=== PATIENT | female | born 1965 | race Caucasian/White ===

== ENCOUNTER 2017-05-31 13:55 | Emergency (ER) | payer MEDICARE ==
--- NOTE | 2017-05-31 14:49 | ED ---
General Adult HPI - General Chief complaint: Urogenital Stated complaint: FALLS, URINARY RETENTION Time Seen by Provider: 05/31/17 14:24 Source: EMS, RN notes reviewed Mode of arrival: EMS - History of Present Illness Initial comments: 51 yo female presents to the ER with cc of urinary retention. Patient has a history of increased fluid on the brain. They state that she has been acting that way she's been having some unsteady gait she's been having urinary retention and she has been having some abnormal behavior. They state that whenever this happens they get concerned about increased fluid on the brain. They state that they were concerned because she hasn't had a good urine output so they brought her here. She has had multiple falls. The patient denies any pain at this time. The patient is poor historian. Family at bedside does give a brief history. Patient denies any recent fever, chills, shortness of breath, chest pain, back pain, nausea vomiting, numbness or tingling, dysuria or hematuria, constipation or diarrhea, headaches or visual changes, or any other current symptoms. - Related Data Home Medications Medication Instructions Recorded Confirmed Acyclovir [Zovirax] 200 mg PO BID 05/31/17 05/31/17 Cholecalciferol (Vitamin D3) 2,000 unit PO DAILY 05/31/17 05/31/17 [Vitamin D3] Levothyroxine Sodium [Synthroid] 50 mcg PO DAILY 05/31/17 05/31/17 Niacin 500 mg PO HS 05/31/17 05/31/17 risperiDONE [RisperDAL] 2 mg PO HS 05/31/17 05/31/17 Allergies Allergy/AdvReac Type Severity Reaction Status Date / Time No Known Allergies Allergy Verified 05/31/17 14:49 Review of Systems ROS Statement: Those systems with pertinent positive or pertinent negative responses have been documented in the HPI. ROS Other: All systems not noted in ROS Statement are negative. Past Medical History Past Medical History: Neurologic Disorder Additional Past Medical History / Comment(s): hyperthroidism, short term memory, History of Any Multi-Drug Resistant Organisms: None Reported Past Surgical History: Breast Surgery Additional Past Surgical History / Comment(s): [id number], 1 brain shunt 2004, 1 brain shunt 2014, 2000- breast implants. Past Psychological History: No Psychological Hx Reported Smoking Status: Former smoker Past Alcohol Use History: None Reported Past Drug Use History: None Reported General Exam - General Exam Comments Initial Comments: General: The patient is awake and alert, in no distress, and does not appear acutely ill. Head: Contusion around the left eye Eye: Pupils are equal, round and reactive to light, extra-ocular movements are intact; there is normal conjunctiva bilaterally. No signs of icterus. Ears, nose, mouth and throat: There are moist mucous membranes and no oral lesions. Neck: The neck is supple, there is no tenderness. Cardiovascular: There is a regular rate and rhythm. No murmur, rub or gallop is appreciated. Respiratory: Lungs are clear to auscultation, respirations are non-labored, breath sounds are equal. No wheezes, stridor, rales, or rhonchi. Gastrointestinal: Soft, distended, non-tender abdomen without masses or organomegaly noted. There is no rebound or guarding present. No CVA tenderness. Bowel sounds are unremarkable. Back: There is no tenderness to palpation in the midline. There is no obvious deformity. No rashes noted. Musculoskeletal: Normal ROM, no tenderness, There is no pedal edema. There is no calf tenderness or swelling. Sensation intact. Pulses equal bilaterally 2+. Neurological: CN II-XII intact, There are no obvious motor or sensory deficits. Coordination appears grossly intact. Speech is normal. Patient does appear to have some ataxia on exam however unknown about patient's normal neurological state. Patient does appear to have some left arm weakness on exam unknown if this is new or chronic for the patient. Skin: Skin is warm and dry and no rashes or lesions are noted. Psychiatric: Cooperative, appropriate mood & affect, normal judgment. Course Vital Signs 05/31/17 05/31/17 05/31/17 13:58 15:07 16:00 Temperature 97.1 F L Pulse Rate 100 101 H 102 H Respiratory 18 20 18 Rate Blood Pressure 137/67 150/87 124/72 O2 Sat by Pulse 97 97 96 Oximetry Medical Decision Making - Medical Decision Making 51-year-old female presents emergency Department with a chief complaint of falls and urinary retention. Patient continues to complain of no pain. At this time CT is been reviewed as well as laboratory. This and we will transfer the patient [facility] where her neuro surgeries were performed in the past for continued care and evaluation. This is discussed with the family and they are in agreement with the plan. At this time the case was discussed with Dr. Kaur who is in agreement with this plan and they do accept the patient. - Lab Data Result diagrams: 05/31/17 15:07 Lab Results 05/31/17 05/31/17 05/31/17 Range/Units 14:53 15:07 15:07 WBC 7.8 (3.8-10.6) k/uL RBC 4.36 (3.80-5.40) m/uL Hgb 14.4 (11.4-16.0) gm/dL Hct 43.4 (34.0-46.0) % MCV 99.6 (80.0-100.0) fL MCH 32.9 (25.0-35.0) pg MCHC 33.0 (31.0-37.0) g/dL RDW 13.4 (11.5-15.5) % Plt Count 316 (150-450) k/uL Neutrophils % 75 % Lymphocytes % 18 % Monocytes % 4 % Eosinophils % 1 % Basophils % 0 % Neutrophils # 5.8 (1.3-7.7) k/uL Lymphocytes # 1.4 (1.0-4.8) k/uL Monocytes # 0.3 (0-1.0) k/uL Eosinophils # 0.1 (0-0.7) k/uL Basophils # 0.0 (0-0.2) k/uL PT 9.8 (9.0-12.0) sec INR 1.0 (<1.2) APTT 23.6 (22.0-30.0) sec Urine Color Yellow Urine Appearance Clear (Clear) Urine pH 6.0 (5.0-8.0) Ur Specific [place] 1.022 (1.001-1.035) Urine Protein 1+ H (Negative) Urine Glucose (UA) Negative (Negative) Urine Ketones 1+ H (Negative) Urine Blood Moderate H (Negative) Urine Nitrite Negative (Negative) Urine Bilirubin Negative (Negative) Urine Urobilinogen <2.0 (<2.0) mg/dL Ur Leukocyte Esterase Negative (Negative) Urine RBC 10 H (0-5) /hpf Urine WBC 5 (0-5) /hpf Ur Squamous Epith Cells <1 (0-4) /hpf Amorphous Sediment Rare H (None) /hpf Urine Mucus Rare H (None) /hpf - Radiology Data Radiology results: report reviewed, image reviewed Disposition Clinical Impression: Urinary retention, Unsteady gait, Frequent falls, Hematuria, Contusion of left eye, Shunt malfunction, Normal pressure hydrocephalus Disposition: OTHER INSTITUTION NOT DEFINED Condition: Stable Referrals: Oebd Juares MD [Primary Care Provider] - 1-2 days - Out of Hospital Transfer - Req. Specs Out of Hospital Transfer - Requested Specifics: Other Non-Acute ([facility] neuro floor)
[2017-05-31 15:10] LABS: Amorphous Sediment,Urine Rare /hpf; Appearance,Urine Clear (Clear); Bilirubin,Urine Negative (Negative); Glucose,Urine (UA) Negative (Negative); Ketones,Urine 1+ (Negative); Leukocyte Esterase,Urine Negative (Negative); Mucus,Urine Rare /hpf; Nitrite,Urine Negative (Negative); Particle Count 2136; Protein,Urine 1+ (Negative); RBC,Urine 10 /hpf (0-5); Specific Gravity,Urine 1.022 (1.001-1.035); Squamous Epithelial Cell,Urine <1 /hpf (0-4); UA Billing (MACRO vs. MICRO) MICRO; Urobilinogen,Urine <2.0 mg/dL (<2.0); WBC,Urine 5 /hpf (0-5)
[2017-05-31 15:20] LABS: Basophils % (A) 0 %; CH 32.5; CHCM 32.8; Eosinophils # (A) 0.1 k/uL (0-0.7); Eosinophils % (A) 1 %; HCT 43.4 % (34.0-46.0); HDW 2.43; HGB 14.4 gm/dL (11.4-16.0); Luc # (Auto) 0.13; Luc % (Auto) 2; Lymphocytes # (A) 1.4 k/uL (1.0-4.8); Lymphocytes % (A) 18 %; MCH 32.9 pg (25.0-35.0); MCV 99.6 fL (80.0-100.0); Mean Platelet Volume 7.9; Monocytes # (A) 0.3 k/uL (0-1.0); Monocytes % (A) 4 %; Neutrophils # (A) 5.8 k/uL (1.3-7.7); Neutrophils % (A) 75 %; RBC 4.36 m/uL (3.80-5.40); RDW 13.4 % (11.5-15.5); WBC 7.8 k/uL (3.8-10.6); WBC (Perox) 7.43
[2017-05-31 15:29] LABS: ALT 161 U/L (9-52); AST 295 U/L (14-36); Alkaline Phosphatase 99 U/L (38-126); Amylase 36 U/L (30-110); Anion Gap 9 mmol/L; Blood Urea Nitrogen 14 mg/dL (7-17); Calcium 9.2 mg/dL (8.4-10.2); Carbon Dioxide 24 mmol/L (22-30); Chloride 108 mmol/L (98-107); Glucose 97 mg/dL (74-99); Non-African American GFR(MDRD) >60 (>60 ml/min/1.73 sqM); Phosphorous 3.1 mg/dL (2.5-4.5); Potassium 3.5 mmol/L (3.5-5.1); Sodium 141 mmol/L (137-145); Total Bilirubin 0.5 mg/dL (0.2-1.3); Total Protein 6.2 g/dL (6.3-8.2)
--- NOTE | 2017-05-31 15:38 | XR ---
EXAMINATION TYPE: XR chest 2V DATE OF EXAM: 05/31/2017 COMPARISON: 11/12/2012 TECHNIQUE: PA and lateral views submitted. HISTORY: Cough FINDINGS: The lungs are clear and there is no pneumothorax, pleural effusion, or focal pneumonia. Tubing or c atheter overlying the right chest and neck. Subsegmental changes at both lung bases. IMPRESSION: 1. Basilar subsegmental changes are felt more typical of atelectasis than pneumonia. Correlate clinic ally.
[2017-05-31 15:42] LABS: Partial Thromboplastin Time 23.6 sec (22.0-30.0); Prothrombin Time 9.8 sec (9.0-12.0)
--- NOTE | 2017-05-31 15:43 | CT ---
EXAMINATION TYPE: CT brain wo con DATE OF EXAM: 05/31/2017 COMPARISON: NONE HISTORY: Frequent falls. CT DLP: 963.60 mGycm. Automated Exposure Control for Dose Reduction was Utilized. TECHNIQUE: CT scan of the head is performed without contrast. FINDINGS: There is no acute intracranial hemorrhage. Paranasal sinuses and mastoid air cells are we ll aerated. Occipital craniectomy defect is redemonstrated. The previously seen ventriculoperitoneal shunt and a right frontal approach with associated encephalomalacia of the right frontal lobe and encephalomalaci a also seen within the left frontal lobe are redemonstrated. Other scattered areas of hypoattenuation are present within the right parietal lobe, also demonstrated on the prior exam and unchanged. Old b urr hole is seen of the left frontal lobe. There is decreased in ventricular size in the interim of the lateral ventricles and third ventricle, however there is new gross dilatation of the fourth ventricle. No gross evidence of midline shift. Aneurysmal clips are again seen in the suprasellar cistern creati ng extensive spray artifact partially obscuring visualization of the posterior fossa. Similar aneurys m clips are seen within the left [place] also creating spray artifact and partially obscurin g visualization. Bilateral chronic appearing subdural hygromas are seen, not present on the prior exa m. The posterior occipital approach ventricular shunt does not appear to be located within the fourth ve ntricle and terminates within the left cerebellar hemisphere. IMPRESSION: 1. New severe dilatation of the fourth ventricle with the occipital approach ventricular shunt appear ing to terminate in the left cerebellar hemisphere and not located within the fourth ventricle. 2. Slitlike lateral ventricles, which could relate to intracranial hypotension. Evaluation for this o n the coronal image is suboptimal given aneurysmal clips and extensive spray artifact. 3. Bilateral chronic appearing subdural hygromas. 4. Unchanged bifrontal encephalomalacia and right frontal approach ventriculoperitoneal shunt termina ting in the foramen of [place], appearing appropriately placed.
[2017-05-31 16:05] VITALS: RESP 18
[2017-05-31 17:04] VITALS: BP 144/73; PULSE 106
[2017-05-31 17:05] VITALS: TEMP 97.8
== END 2017-05-31 17:24 | disposition short-term general hospital (02) ==
LOC: EC 13:55
DX: S05.8X2A Other injuries of left eye and orbit, initial encounter (principal); T82.319A Breakdown (mechanical) of unspecified vascular grafts, initial encounter; G91.2 (Idiopathic) normal pressure hydrocephalus; R29.6 Repeated falls; R33.9 Retention of urine, unspecified; R31.9 Hematuria, unspecified; R53.1 Weakness; E05.90 Thyrotoxicosis, unspecified without thyrotoxic crisis or storm; Z87.891 Personal history of nicotine dependence; Z79.899 Other long term (current) drug therapy; X58.XXXA Exposure to other specified factors, initial encounter
CPT/HCPCS: 36415; 51798; 70450; 71020; 80053; 81001; 82150; 83690; 83735; 84100; 85025; 85610; 85730; 87086; 99285

== ENCOUNTER 2017-08-12 00:47 | Inpatient (IN) | payer MEDICARE ==
[2017-08-12 01:07] LABS: INR 1.1 (<1.2); Partial Thromboplastin Time 22.1 sec (22.0-30.0); Prothrombin Time 10.8 sec (9.0-12.0)
[2017-08-12 01:09] LABS: ALT 43 U/L (9-52); AST 101 U/L (14-36); Alkaline Phosphatase 106 U/L (38-126); Anion Gap 11 mmol/L; Blood Urea Nitrogen 13 mg/dL (7-17); Calcium 8.9 mg/dL (8.4-10.2); Carbon Dioxide 23 mmol/L (22-30); Chloride 101 mmol/L (98-107); Glucose 206 mg/dL (74-99); Non-African American GFR(MDRD) 53 (>60 ml/min/1.73 sqM); Sodium 135 mmol/L (137-145); Total Bilirubin 0.4 mg/dL (0.2-1.3); Total Protein 6.3 g/dL (6.3-8.2)
--- NOTE | 2017-08-12 01:10 | XR ---
EXAMINATION TYPE: XR chest 1V portable DATE OF EXAM: 08/12/2017 COMPARISON: 05/31/2017 HISTORY: Fever TECHNIQUE: Single frontal view of the chest is obtained. FINDINGS: There is no heart failure nor confluent pneumonic infiltrate. Costophrenic angles are fair ly clear. There are apparent bilateral ventriculoperitoneal shunt catheters. Bony thorax is intact. IMPRESSION: No active cardiopulmonary disease. No change.
[2017-08-12] MEDS ORDERED: cefTRIAXone IN SWFI 1,000 MG/10 ML SYRINGE IVP ONE (01:15)
[2017-08-12] MEDS: SODIUM CHLORIDE 0.9% 500 ML IV SCH ×4 (01:27→03:38)
--- NOTE | 2017-08-12 01:36 | ED ---
Fall HPI - General Chief Complaint: Fall Stated Complaint: Fall Time Seen by Provider: 08/12/17 00:47 Source: EMS Mode of arrival: EMS Limitations: physical limitation (Develop mild disability) - History of Present Illness Initial Comments: Patient is a 51-year-old woman brought by EMS to be evaluated after she had a fall at home. The patient denies injury related to the fall. She states she was feeling dizzy. Complaint: fall -: minutes(s) Fall From: standing When Fall Occurred: [address] Fall Occurred: home Loss of Consciousness: none Prolonged Down Time?: no Symptoms Prior to Fall: dizziness - Related Data Home Medications Medication Instructions Recorded Confirmed Acyclovir [Zovirax] 200 mg PO BID 05/31/17 08/12/17 Cholecalciferol (Vitamin D3) 2,000 unit PO DAILY 05/31/17 08/12/17 [Vitamin D3] Levothyroxine Sodium [Synthroid] 50 mcg PO DAILY 05/31/17 08/12/17 Niacin 500 mg PO HS 05/31/17 08/12/17 risperiDONE [RisperDAL] 2 mg PO HS 05/31/17 08/12/17 Allergies Allergy/AdvReac Type Severity Reaction Status Date / Time No Known Allergies Allergy Verified 05/31/17 14:49 Review of Systems ROS Statement: Those systems with pertinent positive or pertinent negative responses have been documented in the HPI. ROS Other: All systems not noted in ROS Statement are negative. Limitations: ROS unobtainable due to patients medical condition (Vital mild disability) Constitutional: Denies: fever Respiratory: Denies: cough, dyspnea Cardiovascular: Denies: chest pain, orthopnea Gastrointestinal: Denies: abdominal pain, vomiting, diarrhea Genitourinary: Reports: other (Indwelling catheter) Musculoskeletal: Denies: back pain Skin: Denies: rash Neurological: Denies: headache Past Medical History Past Medical History: CVA/TIA, Neurologic Disorder Additional Past Medical History / Comment(s): hyperthroidism, short term memory, History of Any Multi-Drug Resistant Organisms: None Reported Past Surgical History: Breast Surgery Additional Past Surgical History / Comment(s): [id number], 1 brain shunt 2004, 1 brain shunt 2014, 2000- breast implants. Past Psychological History: No Psychological Hx Reported Smoking Status: Former smoker Past Alcohol Use History: None Reported Past Drug Use History: None Reported General Exam Limitations: no limitations General appearance: alert, in no apparent distress Head exam: Present: atraumatic, normocephalic Eye exam: Present: normal appearance. Absent: scleral icterus, conjunctival injection ENT exam: Present: mucous membranes dry Neck exam: Present: normal inspection, full ROM. Absent: tenderness Respiratory exam: Present: normal lung sounds bilaterally. Absent: respiratory distress, wheezes, rales, rhonchi, stridor Cardiovascular Exam: Present: normal rhythm, tachycardia (Rate approximate 132 exam), normal heart sounds. Absent: systolic murmur, diastolic murmur, rubs, gallop GI/Abdominal exam: Present: soft. Absent: distended, tenderness, guarding, rebound, rigid, mass Extremities exam: Present: normal inspection, normal capillary refill. Absent: pedal edema, calf tenderness Neurological exam: Present: alert Skin exam: Present: warm, dry, intact, normal color. Absent: rash Course Vital Signs 08/12/17 08/12/17 08/12/17 00:48 01:29 EDT 01:37 EST Temperature 96.3 F L Pulse Rate 136 H 129 H 121 H Respiratory 20 20 Rate Blood Pressure 128/72 128/72 112/60 O2 Sat by Pulse 91 L 95 98 Oximetry 08/12/17 02:30 Temperature Pulse Rate 114 H Respiratory Rate Blood Pressure O2 Sat by Pulse Oximetry Medical Decision Making - Lab Data Result diagrams: 08/12/17 01:37 EST 08/12/17 01:37 EST Lab Results 08/12/17 08/12/17 08/12/17 Range/Units 01:37 EST 01:37 EST 01:37 EST WBC 19.4 H (3.8-10.6) k/uL RBC 4.85 (3.80-5.40) m/uL Hgb 15.0 (11.4-16.0) gm/dL Hct 47.9 H (34.0-46.0) % MCV 98.7 (80.0-100.0) fL MCH 30.8 (25.0-35.0) pg MCHC 31.2 (31.0-37.0) g/dL RDW 14.0 (11.5-15.5) % Plt Count 262 (150-450) k/uL Neutrophils % 94 % Lymphocytes % 2 % Monocytes % 3 % Eosinophils % 1 % Basophils % 0 % Neutrophils # 18.2 H (1.3-7.7) k/uL Lymphocytes # 0.4 L (1.0-4.8) k/uL Monocytes # 0.6 (0-1.0) k/uL Eosinophils # 0.1 (0-0.7) k/uL Basophils # 0.0 (0-0.2) k/uL PT (9.0-12.0) sec INR (<1.2) APTT (22.0-30.0) sec Sodium 135 L (137-145) mmol/L Potassium 4.0 (3.5-5.1) mmol/L Chloride 101 (98-107) mmol/L Carbon Dioxide 23 (22-30) mmol/L Anion Gap 11 mmol/L BUN 13 (7-17) mg/dL Creatinine 1.10 H (0.52-1.04) mg/dL Est GFR (MDRD) Af Amer >60 (>60 ml/min/1.73 sqM) Est GFR (MDRD) Non-Af 53 (>60 ml/min/1.73 sqM) Glucose 206 H (74-99) mg/dL Plasma Lactic Acid Nitesh 2.2 H* (0.7-2.0) mmol/L Calcium 8.9 (8.4-10.2) mg/dL Total Bilirubin 0.4 (0.2-1.3) mg/dL AST 101 H (14-36) U/L ALT 43 (9-52) U/L Alkaline Phosphatase 106 (38-126) U/L Troponin I (0.000-0.034) ng/mL Total Protein 6.3 (6.3-8.2) g/dL Albumin 3.6 (3.5-5.0) g/dL Urine Color Urine Appearance (Clear) Urine pH (5.0-8.0) Ur Specific [place] (1.001-1.035) Urine Protein (Negative) Urine Glucose (UA) (Negative) Urine Ketones (Negative) Urine Blood (Negative) Urine Nitrite (Negative) Urine Bilirubin (Negative) Urine Urobilinogen (<2.0) mg/dL Ur Leukocyte Esterase (Negative) Urine RBC (0-5) /hpf Urine WBC (0-5) /hpf Urine WBC Clumps (None) /hpf Ur Squamous Epith Cells (0-4) /hpf Ur Transition Epith Cell (0-1) /hpf Urine Bacteria (None) /hpf Hyaline Casts (0-2) /lpf Urine Mucus (None) /hpf 08/12/17 08/12/17 08/12/17 Range/Units 01:37 EST 01:37 EST 01:37 EST WBC (3.8-10.6) k/uL RBC (3.80-5.40) m/uL Hgb (11.4-16.0) gm/dL Hct (34.0-46.0) % MCV (80.0-100.0) fL MCH (25.0-35.0) pg MCHC (31.0-37.0) g/dL RDW (11.5-15.5) % Plt Count (150-450) k/uL Neutrophils % % Lymphocytes % % Monocytes % % Eosinophils % % Basophils % % Neutrophils # (1.3-7.7) k/uL Lymphocytes # (1.0-4.8) k/uL Monocytes # (0-1.0) k/uL Eosinophils # (0-0.7) k/uL Basophils # (0-0.2) k/uL PT 10.8 (9.0-12.0) sec INR 1.1 (<1.2) APTT 22.1 (22.0-30.0) sec Sodium (137-145) mmol/L Potassium (3.5-5.1) mmol/L Chloride (98-107) mmol/L Carbon Dioxide (22-30) mmol/L Anion Gap mmol/L BUN (7-17) mg/dL Creatinine (0.52-1.04) mg/dL Est GFR (MDRD) Af Amer (>60 ml/min/1.73 sqM) Est GFR (MDRD) Non-Af (>60 ml/min/1.73 sqM) Glucose (74-99) mg/dL Plasma Lactic Acid Nitesh (0.7-2.0) mmol/L Calcium (8.4-10.2) mg/dL Total Bilirubin (0.2-1.3) mg/dL AST (14-36) U/L ALT (9-52) U/L Alkaline Phosphatase (38-126) U/L Troponin I 0.046 H* (0.000-0.034) ng/mL Total Protein (6.3-8.2) g/dL Albumin (3.5-5.0) g/dL Urine Color Yellow Urine Appearance Cloudy H (Clear) Urine pH 6.5 (5.0-8.0) Ur Specific [place] 1.008 (1.001-1.035) Urine Protein 2+ H (Negative) Urine Glucose (UA) Negative (Negative) Urine Ketones Negative (Negative) Urine Blood Large H (Negative) Urine Nitrite Negative (Negative) Urine Bilirubin Negative (Negative) Urine Urobilinogen <2.0 (<2.0) mg/dL Ur Leukocyte Esterase Large H (Negative) Urine RBC 22 H (0-5) /hpf Urine WBC 99 H (0-5) /hpf Urine WBC Clumps Rare H (None) /hpf Ur Squamous Epith Cells 5 H (0-4) /hpf Ur Transition Epith Cell 2 H (0-1) /hpf Urine Bacteria Rare H (None) /hpf Hyaline Casts 3 H (0-2) /lpf Urine Mucus Rare H (None) /hpf Disposition Clinical Impression: Fall, Sepsis, Urinary tract infection Disposition: ADMITTED IP TO THIS [facility] Condition: Serious Referrals: Obed Juares MD [Primary Care Provider] - 1-2 days
--- NOTE | 2017-08-12 01:47 | CT ---
EXAMINATION TYPE: CT brain wo con DATE OF EXAM: 08/12/2017 COMPARISON: 05/31/2017 HISTORY: fall pain CT DLP: 892.10 mGycm Automated exposure control for dose reduction was used. FINDINGS: There is occipital craniotomy defect. There is a drainage catheter in the posterior fossa. There is a rounded 3.5 cm fluid collection in the midline posterior fossa that is probably enlarged fourth vent ricle. There is patchy hypodensity in the left cerebellar hemisphere. There is thinning of the right cerebellar hemisphere. There is metal artifact from surgical clips at the left anterior clinoid proce ss. There is moderate hypodensity in the white matter of both posterior frontal lobes. There is a drainag e catheter in the third ventricle. The lateral ventricles are small. The occipital drainage catheter appears to be posterior to the enlarged fourth ventricle. IMPRESSION: PREVIOUS SURGERY. MODERATELY DILATED FOURTH VENTRICLE IS UNCHANGED COMPARED TO LAST EXAM. THE POSTERI OR DRAINAGE CATHETER COULD BE MALPOSITIONED. THIS IS NOT CHANGED IN POSITION COMPARED TO LAST EXAM. E NCEPHALOMALACIA IN THE LEFT CEREBELLAR HEMISPHERE AND ALSO IN BILATERAL POSTERIOR FRONTAL LOBES. LATE RAL AND THIRD VENTRICLES ARE NOT DILATED. THERE IS CLEARING OF THE MILD BILATERAL SUBDURAL HYGROMAS C OMPARED TO LAST EXAM.
[2017-08-12 01:58] LABS: Appearance,Urine Cloudy (Clear); Bacteria,Urine Rare /hpf; Basophils % (A) 0 %; Bilirubin,Urine Negative (Negative); CH 31.5; Eosinophils # (A) 0.1 k/uL (0-0.7); Eosinophils % (A) 1 %; Glucose,Urine (UA) Negative (Negative); HCT 47.9 % (34.0-46.0); HDW 2.04; Ketones,Urine Negative (Negative); Leukocyte Esterase,Urine Large (Negative); Luc # (Auto) 0.05; Luc % (Auto) 0; Lymphocytes # (A) 0.4 k/uL (1.0-4.8); Lymphocytes % (A) 2 %; MCH 30.8 pg (25.0-35.0); MCHC 31.2 g/dL (31.0-37.0); MCV 98.7 fL (80.0-100.0); Mean Platelet Volume 7.8; Monocytes # (A) 0.6 k/uL (0-1.0); Monocytes % (A) 3 %; Mucus,Urine Rare /hpf; Neutrophils # (A) 18.2 k/uL (1.3-7.7); Neutrophils % (A) 94 %; Nitrite,Urine Negative (Negative); PH, Urine 6.5 (5.0-8.0); Particle Count 11380; Protein,Urine 2+ (Negative); RBC 4.85 m/uL (3.80-5.40); RBC,Urine 22 /hpf (0-5); Specific Gravity,Urine 1.008 (1.001-1.035); Squamous Epithelial Cell,Urine 5 /hpf (0-4); Transitional Epi Cells,Urine 2 /hpf (0-1); UA Billing (MACRO vs. MICRO) MICRO; Urobilinogen,Urine <2.0 mg/dL (<2.0); WBC 19.4 k/uL (3.8-10.6); WBC (Perox) 19.43; WBC,Urine 99 /hpf (0-5)
[2017-08-12 04:56] VITALS: BMI 22.4
[2017-08-12] MEDS: LEVOTHYROXINE 50 MCG TAB PO SCH (06:19)
[2017-08-12] MEDS: CHOLECALCIFEROL 1,000 UNIT TAB PO SCH (07:49)
[2017-08-12] MEDS: ACYCLOVIR 200 MG CAP PO SCH ×2 (07:49→21:04)
[2017-08-12] MEDS: FAMOTIDINE 20 MG/2 ML VIAL IV SCH ×2 (07:50→21:04)
--- NOTE | 2017-08-12 14:06 | P.HPIM ---
History of Present Illness 51-year-old the female came in today came in after a fall. Patient was having generalized tiredness and fell patient is found to have fever no other source of infection was appreciated except for abnormal uterine although patient denied dysuria denied nausea vomiting patient denied any cough and patient chest x-ray did not is not consistent with pneumonia. Patient will be treated for urinary tract infection as no other source was identified patient the denied any suprapubic pain abdominal pain. Urine cultures blood cultures will be obtained. Review of Systems REVIEW OF SYSTEMS: CONSTITUTIONAL:fever generalized weakness and tiredness HEENT: No recent visual problems or hearing problems. Denied any sore throat. CARDIOVASCULAR: No chest pain, orthopnea, PND, no palpitations, no syncope. PULMONARY: No shortness of breath, no cough, no hemoptysis. GASTROINTESTINAL: No diarrhea, no nausea, no vomiting, no abdominal pain. Normoactive bowel sounds. NEUROLOGICAL: No headaches, no weakness, no numbness. HEMATOLOGICAL: Denies any bleeding or petechiae. GENITOURINARY: Denies any burning micturition, frequency, or urgency. MUSCULOSKELETAL/RHEUMATOLOGICAL: Denies any joint pain, swelling, or any muscle pain. ENDOCRINE: Denies any polyuria or polydipsia. The rest of the 14-point review of systems is negative. Past Medical History Past Medical History: CVA/TIA, Neurologic Disorder Additional Past Medical History / Comment(s): hyperthroidism, short term memory, History of Any Multi-Drug Resistant Organisms: None Reported Past Surgical History: Breast Surgery Additional Past Surgical History / Comment(s): [id number], 1 brain shunt 2004, 1 brain shunt 2014, 2000- breast implants. Past Anesthesia/Blood Transfusion Reactions: No Reported Reaction Past Psychological History: No Psychological Hx Reported Smoking Status: Former smoker Past Alcohol Use History: None Reported Past Drug Use History: None Reported - Past Family History Mother Additional Family Medical History / Comment(s): pt stated that her mom is but she don't know the reason Medications and Allergies Home Medications Medication Instructions Recorded Confirmed Type Acyclovir [Zovirax] 200 mg PO BID 05/31/17 08/12/17 History Cholecalciferol (Vitamin D3) 2,000 unit PO DAILY 05/31/17 08/12/17 History [Vitamin D3] Levothyroxine Sodium [Synthroid] 50 mcg PO DAILY 05/31/17 08/12/17 History Niacin 500 mg PO HS 05/31/17 08/12/17 History risperiDONE [RisperDAL] 2 mg PO HS 05/31/17 08/12/17 History Allergies Allergy/AdvReac Type Severity Reaction Status Date / Time No Known Allergies Allergy Verified 05/31/17 14:49 Physical Exam Vitals: Vital Signs Temp Pulse Pulse Resp BP BP Pulse Ox 08/12/17 11:22 103 H 14 08/12/17 11:20 103 H 14 113/60 100 08/12/17 08:00 111 H 16 08/12/17 07:46 97.0 F L 111 H 16 107/57 96 08/12/17 04:00 97.9 F 114 H 19 115/64 98 08/12/17 03:35 98.7 F 108 H 18 135/63 100 08/12/17 03:22 97.9 F 108 H 19 115/64 99 08/12/17 02:30 114 H 08/12/17 01:37 EST 121 H 20 112/60 98 08/12/17 01:29 EDT 129 H 128/72 95 08/12/17 00:48 96.3 F L 136 H 20 128/72 91 L Intake and Output 08/11/17 08/12/17 08/12/17 23:59 06:59 14:59 Intake Total 236 Output Total 1300 Balance -1064 Intake: Amount of Fluid Infused ( ml) Intake, IV Titration Amount Sodium Chloride 0.9% 500 ml @ 1000 mls/hr IV Q35M SUSY Rx#:[id number] cefTRIAXone 1,000 mg In Sodium Chloride 0.9% 50 ml @ 100 mls/hr IVPB ONCE STA Rx#:[id number] Oral 236 Output: Urine 1300 Other: Voiding Method Incontinent Indwelling Catheter Weight PHYSICAL EXAMINATION: GENERAL: The patient is alert and oriented x3, not in any acute distress. Well developed, well nourished. HEENT: Pupils are round and equally reacting to light. EOMI. No scleral icterus. No conjunctival pallor. Normocephalic, atraumatic. No pharyngeal erythema. No thyromegaly. CARDIOVASCULAR: S1 and S2 present. No murmurs, rubs, or gallops. PULMONARY: Chest is clear to auscultation, no wheezing or crackles. ABDOMEN: Soft, nontender, nondistended, normoactive bowel sounds. No palpable organomegaly. MUSCULOSKELETAL: No joint swelling or deformity. EXTREMITIES: No cyanosis, clubbing, or pedal edema. NEUROLOGICAL: patient does have significant generalized weakness tiredness and does appear to have some intellectual issues SKIN: No rashes. Results CBC & Chem 7: 08/12/17 01:37 EST 08/12/17 01:37 EST Labs: Abnormal Lab Results - Last 24 Hours (Table) 08/12/17 08/12/17 08/12/17 Range/Units 01:37 EST 01:37 EST 01:37 EST WBC 19.4 H (3.8-10.6) k/uL Hct 47.9 H (34.0-46.0) % Neutrophils # 18.2 H (1.3-7.7) k/uL Lymphocytes # 0.4 L (1.0-4.8) k/uL Sodium 135 L (137-145) mmol/L Creatinine 1.10 H (0.52-1.04) mg/dL Glucose 206 H (74-99) mg/dL Plasma Lactic Acid Nitesh 2.2 H* (0.7-2.0) mmol/L AST 101 H (14-36) U/L Troponin I (0.000-0.034) ng/mL Urine Appearance (Clear) Urine Protein (Negative) Urine Blood (Negative) Ur Leukocyte Esterase (Negative) Urine RBC (0-5) /hpf Urine WBC (0-5) /hpf Urine WBC Clumps (None) /hpf Ur Squamous Epith Cells (0-4) /hpf Ur Transition Epith Cell (0-1) /hpf Urine Bacteria (None) /hpf Hyaline Casts (0-2) /lpf Urine Mucus (None) /hpf 08/12/17 08/12/17 Range/Units 01:37 EST 01:37 EST WBC (3.8-10.6) k/uL Hct (34.0-46.0) % Neutrophils # (1.3-7.7) k/uL Lymphocytes # (1.0-4.8) k/uL Sodium (137-145) mmol/L Creatinine (0.52-1.04) mg/dL Glucose (74-99) mg/dL Plasma Lactic Acid Nitesh (0.7-2.0) mmol/L AST (14-36) U/L Troponin I 0.046 H* (0.000-0.034) ng/mL Urine Appearance Cloudy H (Clear) Urine Protein 2+ H (Negative) Urine Blood Large H (Negative) Ur Leukocyte Esterase Large H (Negative) Urine RBC 22 H (0-5) /hpf Urine WBC 99 H (0-5) /hpf Urine WBC Clumps Rare H (None) /hpf Ur Squamous Epith Cells 5 H (0-4) /hpf Ur Transition Epith Cell 2 H (0-1) /hpf Urine Bacteria Rare H (None) /hpf Hyaline Casts 3 H (0-2) /lpf Urine Mucus Rare H (None) /hpf Microbiology - Last 24 Hours (Table) 08/12/17 01:37 EST Urine Culture - Preliminary Urine,Catheterized Thrombosis Risk Factor Assmnt - Choose All That Apply Any of the Below Risk Factors Present?: Yes Each Factor Represents 1 point: Age 41-60 years Thrombosis Risk Factor Assessment Total Risk Factor Score: 1 Thrombosis Risk Factor Assessment Level: Low Risk Assessment and Plan Plan: 1 sepsis: Possibly related to urinary tract infection patient will be started on IV antibiotics urine cultures will be obtain blood cultures will be obtained. #2 severe TIA in the past #3 hypothyroidism patient was started on Rocephin awaiting cultures her appropriate home medications will be continued. And lives in an assisted living facility patient will be discharged to that facility either tomorrow or day after depending on her clinical course
[2017-08-12 15:47] VITALS: RESP 18
[2017-08-12] MEDS: SODIUM CHLORIDE 0.9% 1,000 ML IV SCH ×2 (16:12→21:04)
[2017-08-12] MEDS ORDERED: NIACIN TR 500 MG CAPSULE.ER PO SCH (21:00)
[2017-08-12] MEDS ORDERED: risperiDONE 2 MG TAB PO SCH (21:00)
[2017-08-13] MEDS: LEVOTHYROXINE 50 MCG TAB PO SCH (05:50)
[2017-08-13 07:21] LABS: CH 31.4; CHCM 32.1; HCT 47.5 % (34.0-46.0); HDW 2.19; HGB 15.1 gm/dL (11.4-16.0); MCH 31.3 pg (25.0-35.0); MCHC 31.8 g/dL (31.0-37.0); MCV 98.4 fL (80.0-100.0); Mean Platelet Volume 7.3; RBC 4.83 m/uL (3.80-5.40); RDW 12.7 % (11.5-15.5); WBC 8.8 k/uL (3.8-10.6)
[2017-08-13 07:27] LABS: Anion Gap 5 mmol/L; Blood Urea Nitrogen 11 mg/dL (7-17); Calcium 8.5 mg/dL (8.4-10.2); Carbon Dioxide 25 mmol/L (22-30); Chloride 107 mmol/L (98-107); Glucose 120 mg/dL (74-99); Non-African American GFR(MDRD) >60 (>60 ml/min/1.73 sqM); Potassium 4.1 mmol/L (3.5-5.1); Sodium 137 mmol/L (137-145)
[2017-08-13 07:30] VITALS: BP 122/71; PULSE 93; TEMP 97
[2017-08-13] MEDS: CHOLECALCIFEROL 1,000 UNIT TAB PO SCH (09:30)
[2017-08-13] MEDS: ACYCLOVIR 200 MG CAP PO SCH (09:30)
[2017-08-13] MEDS: FAMOTIDINE 20 MG/2 ML VIAL IV SCH (09:30)
[2017-08-13] MEDS: SODIUM CHLORIDE 0.9% 1,000 ML IV SCH (09:30)
[2017-08-13] MEDS ORDERED: INFLUENZA VACCINE (6 MOS+) 60 MCG/0.5 ML SYRINGE IM ONE (14:22)
--- NOTE | 2017-08-13 14:59 | P.DS ---
Providers Date of admission: 08/12/17 02:53 Attending physician: Joseph Frederick Primary care physician: Obed Montesinos [facility] Course: Patient was admitted for sepsis probably secondary to urinary tract infection patient is clinically doing well today patient kidney function improved patient leukocytosis improving patient will be discharged on Ceftin for 5 more days. PHYSICAL EXAMINATION: GENERAL: The patient is alert and oriented x3, not in any acute distress. Well developed, well nourished. HEENT: Pupils are round and equally reacting to light. EOMI. No scleral icterus. No conjunctival pallor. Normocephalic, atraumatic. No pharyngeal erythema. No thyromegaly. CARDIOVASCULAR: S1 and S2 present. No murmurs, rubs, or gallops. PULMONARY: Chest is clear to auscultation, no wheezing or crackles. ABDOMEN: Soft, nontender, nondistended, normoactive bowel sounds. No palpable organomegaly. MUSCULOSKELETAL: No joint swelling or deformity. EXTREMITIES: No cyanosis, clubbing, or pedal edema. NEUROLOGICAL: Gross neurological examination did not reveal any focal deficits. SKIN: No rashes. 1 sepsis: Possibly related to urinary tract infection , urine cultures are negative #2 severe TIA in the past #3 hypothyroidism #4 mild elevated troponin secondary to sepsis. Patient Condition at Discharge: Serious Plan - Discharge Summary Discharge Rx Participant: No New Discharge Prescriptions: New Cefuroxime Axetil [Ceftin] 500 mg PO BID #10 tab No Action Levothyroxine Sodium [Synthroid] 50 mcg PO DAILY Cholecalciferol (Vitamin D3) [Vitamin D3] 2,000 unit PO DAILY risperiDONE [RisperDAL] 2 mg PO HS Acyclovir [Zovirax] 200 mg PO BID Niacin 500 mg PO HS Ammonium Lactate Cream [Lac-Hydrin 12% Cream] 1 applic TOPICAL BID Discharge Medication List Acyclovir [Zovirax] 200 mg PO BID 05/31/17 [History] Cholecalciferol (Vitamin D3) [Vitamin D3] 2,000 unit PO DAILY 05/31/17 [History] Levothyroxine Sodium [Synthroid] 50 mcg PO DAILY 05/31/17 [History] Niacin 500 mg PO HS 05/31/17 [History] risperiDONE [RisperDAL] 2 mg PO HS 05/31/17 [History] Ammonium Lactate Cream [Lac-Hydrin 12% Cream] 1 applic TOPICAL BID 08/13/17 [ History] Cefuroxime Axetil [Ceftin] 500 mg PO BID #10 tab 08/13/17 [Rx] Follow up Appointment(s)/Referral(s): Obed Juares MD [Primary Care Provider] - 08/17/17 11:00 am Patient Instructions/Handouts: Urinary Tract Infection in Women (DC), Sepsis ( GEN) Activity/Diet/Wound Care/Special Instructions: ACTIVITY TOLERATED REGULAR DIET Discharge Disposition: HOME SELF-CARE
[2017-08-13] MEDS ORDERED: FAMOTIDINE 20 MG TAB PO SCH (21:00)
[2017-08-13] MEDS ORDERED: cefTRIAXone IN SWFI 1,000 MG/10 ML SYRINGE IVP SCH (23:00)
== END 2017-08-13 14:53 | disposition home or self-care (01) | DRG 872 ==
LOC: EC 00:47 → 6SEL 02:53 → 4MS4W 14:49
PROVIDERS: ADMIT Internal Medicine; ATTEND Internal Medicine
DX: A41.9 Sepsis, unspecified organism (principal); N39.0 Urinary tract infection, site not specified; E03.9 Hypothyroidism, unspecified; Z86.73 Personal history of transient ischemic attack (TIA), and cerebral infarction without residual deficits; Z79.899 Other long term (current) drug therapy; Z98.82 Breast implant status; Z87.891 Personal history of nicotine dependence; Z86.79 Personal history of other diseases of the circulatory system; W18.30XA Fall on same level, unspecified, initial encounter
CPT/HCPCS: 36415; 51702; 70450; 71010; 80048; 80053; 81001; 83605; 84484; 85025; 85027; 85610; 85730; 87040; 87086; 93005; 96374; 99285

== ENCOUNTER 2017-11-19 15:03 | Emergency (ER) | payer MEDICARE ==
[2017-11-19 15:10] VITALS: RESP 16
--- NOTE | 2017-11-19 15:47 | ED ---
General Adult HPI - General Chief complaint: Recheck/Abnormal Lab/Rx Stated complaint: Change in mental status Time Seen by Provider: 11/19/17 15:15 Source: patient, EMS, RN notes reviewed Mode of arrival: EMS Limitations: physical limitation - History of Present Illness Initial comments: 52-year-old female presents to the emergency department with a chief complaint of unsteady gait, confusion. Patient has a history of this in the past when her shunt was malfunctioning. The patient states that she has no pain or discomfort at this time. They were concerned about her shunt functionality so they thought they should be seen. There is been no fever chills cough cold. Patient denies any recent fever, chills, shortness of breath, chest pain, back pain, abdominal pain, nausea vomiting, numbness or tingling, dysuria or hematuria, constipation or diarrhea, headaches or visual changes, or any other current symptoms. - Related Data Home Medications Medication Instructions Recorded Confirmed Acyclovir [Zovirax] 200 mg PO BID 05/31/17 11/19/17 Cholecalciferol (Vitamin D3) 2,000 unit PO DAILY 05/31/17 11/19/17 [Vitamin D3] Levothyroxine Sodium [Synthroid] 50 mcg PO DAILY 05/31/17 11/19/17 Niacin 500 mg PO HS 05/31/17 11/19/17 risperiDONE [RisperDAL] 2 mg PO HS 05/31/17 11/19/17 Ammonium Lactate Cream [Lac-Hydrin 1 applic TOPICAL BID 08/13/17 11/19/17 12% Cream] Cyanocobalamin (Vitamin B-12) 2,000 mcg PO DAILY 11/19/17 11/19/17 [Vitamin B-12] Tamsulosin HCl [Flomax] 0.4 mg PO DAILY 11/19/17 11/19/17 Allergies Allergy/AdvReac Type Severity Reaction Status Date / Time No Known Allergies Allergy Verified 11/19/17 16:03 Review of Systems ROS Statement: Those systems with pertinent positive or pertinent negative responses have been documented in the HPI. ROS Other: All systems not noted in ROS Statement are negative. Past Medical History Past Medical History: CVA/TIA, Neurologic Disorder Additional Past Medical History / Comment(s): hyperthroidism, short term memory, History of Any Multi-Drug Resistant Organisms: None Reported Past Surgical History: Breast Surgery Additional Past Surgical History / Comment(s): [id number], 1 brain shunt 2004, 1 brain shunt 2014, 2000- breast implants. Past Anesthesia/Blood Transfusion Reactions: No Reported Reaction Past Psychological History: No Psychological Hx Reported Smoking Status: Former smoker Past Alcohol Use History: None Reported Past Drug Use History: None Reported - Past Family History Mother Additional Family Medical History / Comment(s): pt stated that her mom is but she don't know the reason General Exam Limitations: physical limitation General appearance: alert, in no apparent distress Eye exam: Present: normal appearance, PERRL, EOMI. Absent: scleral icterus, conjunctival injection, periorbital swelling ENT exam: Present: normal exam, mucous membranes moist Neck exam: Present: normal inspection. Absent: tenderness, meningismus, lymphadenopathy Respiratory exam: Present: normal lung sounds bilaterally. Absent: respiratory distress, wheezes, rales, rhonchi, stridor Cardiovascular Exam: Present: regular rate, normal rhythm, normal heart sounds. Absent: systolic murmur, diastolic murmur, rubs, gallop, clicks Neurological exam: Present: alert, oriented X3, CN II-XII intact, reflexes normal. Absent: motor sensory deficit Psychiatric exam: Present: normal affect, normal mood Skin exam: Present: warm, dry, intact, normal color. Absent: rash Course Vital Signs 11/19/17 11/19/17 15:06 16:59 Temperature 97.8 F Pulse Rate 107 H 103 H Respiratory 16 16 Rate Blood Pressure 133/68 137/91 O2 Sat by Pulse 96 96 Oximetry Medical Decision Making - Medical Decision Making 52-year-old female presents emergency Department with a chief complaint of concern about function of his shunt. This time CAT scan is reviewed that does show a malfunctioning shunt. At this time the patient was placed to [facility]. We will transfer the continued evaluation. Patient is in agreement this plan. [facility] accepted the transfer via Dr. Atkinson. - Lab Data Result diagrams: 11/19/17 16:10 11/19/17 16:10 Lab Results 11/19/17 11/19/17 11/19/17 Range/Units 16:10 16:10 16:10 WBC 8.8 (3.8-10.6) k/uL RBC 4.89 (3.80-5.40) m/uL Hgb 15.1 (11.4-16.0) gm/dL Hct 48.4 H (34.0-46.0) % MCV 99.0 (80.0-100.0) fL MCH 30.9 (25.0-35.0) pg MCHC 31.2 (31.0-37.0) g/dL RDW 12.6 (11.5-15.5) % Plt Count 272 (150-450) k/uL Neutrophils % 74 % Lymphocytes % 17 % Monocytes % 7 % Eosinophils % 0 % Basophils % 0 % Neutrophils # 6.5 (1.3-7.7) k/uL Lymphocytes # 1.5 (1.0-4.8) k/uL Monocytes # 0.6 (0-1.0) k/uL Eosinophils # 0.0 (0-0.7) k/uL Basophils # 0.0 (0-0.2) k/uL Sodium 144 (137-145) mmol/L Potassium 3.1 L (3.5-5.1) mmol/L Chloride 114 H (98-107) mmol/L Carbon Dioxide 22 (22-30) mmol/L Anion Gap 8 mmol/L BUN 11 (7-17) mg/dL Creatinine 0.50 L (0.52-1.04) mg/dL Est GFR (MDRD) Af Amer >60 (>60 ml/min/1.73 sqM) Est GFR (MDRD) Non-Af >60 (>60 ml/min/1.73 sqM) Glucose 100 H (74-99) mg/dL Plasma Lactic Acid Nitesh 1.5 (0.7-2.0) mmol/L Calcium 7.1 L (8.4-10.2) mg/dL Total Bilirubin 0.2 (0.2-1.3) mg/dL AST 17 (14-36) U/L ALT 23 (9-52) U/L Alkaline Phosphatase 64 (38-126) U/L Ammonia 48 H (<30) umol/L Total Protein 5.0 L (6.3-8.2) g/dL Albumin 2.7 L (3.5-5.0) g/dL Amylase 45 (30-110) U/L Lipase 200 (23-300) U/L - Radiology Data Radiology results: report reviewed, image reviewed Disposition Clinical Impression: Shunt malfunction, Hypokalemia, Increased ammonia level, Altered mental status , Unsteadiness Disposition: OTHER INSTITUTION NOT DEFINED Condition: Stable Referrals: Obed Juares MD [Primary Care Provider] - 1-2 days - Out of Hospital Transfer - Req. Specs Out of Hospital Transfer - Requested Specifics: Other Emergency Center (formerly [facility])
[2017-11-19 16:30] LABS: Lactic Acid, Venous 1.5 mmol/L (0.7-2.0)
[2017-11-19 16:31] LABS: ALT 23 U/L (9-52); AST 17 U/L (14-36); Albumin 2.7 g/dL (3.5-5.0); Alkaline Phosphatase 64 U/L (38-126); Amylase 45 U/L (30-110); Anion Gap 8 mmol/L; Blood Urea Nitrogen 11 mg/dL (7-17); Calcium 7.1 mg/dL (8.4-10.2); Carbon Dioxide 22 mmol/L (22-30); Chloride 114 mmol/L (98-107); Glucose 100 mg/dL (74-99); Lipase 200 U/L (23-300); Potassium 3.1 mmol/L (3.5-5.1); Sodium 144 mmol/L (137-145); Total Bilirubin 0.2 mg/dL (0.2-1.3)
[2017-11-19 16:33] LABS: Basophils % (A) 0 %; Eosinophils % (A) 0 %; HCT 48.4 % (34.0-46.0); HGB 15.1 gm/dL (11.4-16.0); Lymphocytes # (A) 1.5 k/uL (1.0-4.8); Lymphocytes % (A) 17 %; MCH 30.9 pg (25.0-35.0); MCHC 31.2 g/dL (31.0-37.0); Mean Platelet Volume 7.3; Monocytes # (A) 0.6 k/uL (0-1.0); Monocytes % (A) 7 %; Neutrophils # (A) 6.5 k/uL (1.3-7.7); Neutrophils % (A) 74 %; Platelet Count 272 k/uL (150-450); RBC 4.89 m/uL (3.80-5.40); RDW 12.6 % (11.5-15.5); WBC 8.8 k/uL (3.8-10.6)
[2017-11-19] MEDS ORDERED: POTASSIUM CHLORIDE ORAL LIQUID 40 MEQ/30 ML CUP PO ONE (16:40)
--- NOTE | 2017-11-19 16:57 | CT ---
EXAMINATION TYPE: CT brain wo con DATE OF EXAM: 11/19/2017 COMPARISON: 05/31/2017 HISTORY: Patient complains of shunt problems and memory loss. CT DLP: 996 mGycm Automated exposure control for dose reduction was used. FINDINGS: There is extensive metal artifact from surgery at the skull base and at the [place] of [place]. There i s a large area of fluid in the midline posterior fossa. This is apparently an enlarged fourth ventric le. There is hypodensity in both frontal lobes in the white matter with some cortical thinning. There is no midline shift. There is no sign of intracranial hemorrhage. The lateral and third ventricles a re not enlarged. There is a shunt catheter in the posterior fossa. There is shunt catheter in the ant erior aspect of the third ventricle. IMPRESSION: PREVIOUS SURGERY. SIGNIFICANT ENLARGEMENT OF THE FOURTH VENTRICLE THAT APPEARS INCREASED COMPARED TO LAST EXAM THIS RAISES THE POSSIBILITY OF THE POSTERIOR SHUNT MALFUNCTION. THERE IS STABLE BILATERAL FRONTAL LOBE ENCEPHALOMALACIA.
--- NOTE | 2017-11-19 16:59 | XR ---
EXAMINATION TYPE: XR chest 2V DATE OF EXAM: 11/19/2017 COMPARISON: 08/12/2017 HISTORY: Cough TECHNIQUE: Frontal and lateral views of the chest are obtained. FINDINGS: Heart and mediastinum are within normal limits. There are shunt catheters on the left and right side of the neck. There is no evidence of pleural effusion. Lungs are clear of consolidation. T here is no gross heart failure. IMPRESSION: No gross heart failure. Pulmonary vascularity is slightly increased compared to last exa m. Normal heart. No pulmonary consolidation.
[2017-11-19 19:01] VITALS: BP 135/98; PULSE 81; TEMP 98
== END 2017-11-19 18:50 | disposition short-term general hospital (02) ==
LOC: EC 15:03
DX: T82.319A Breakdown (mechanical) of unspecified vascular grafts, initial encounter (principal); E87.6 Hypokalemia; E72.20 Disorder of urea cycle metabolism, unspecified; R41.82 Altered mental status, unspecified; R26.81 Unsteadiness on feet; E05.90 Thyrotoxicosis, unspecified without thyrotoxic crisis or storm; Z87.891 Personal history of nicotine dependence; Z79.899 Other long term (current) drug therapy
CPT/HCPCS: 36415; 70450; 71046; 80053; 82140; 82150; 83605; 83690; 85025; 87040; 99285